=== PATIENT | female | born 1975 | race Caucasian/White ===

== ENCOUNTER 2021-09-21 12:41 | Emergency (ER) | payer MEDICAID ==
[~2021-09-21] VITALS: Ht 165.1 cm; Wt 72.0 kg
[2021-09-21] MEDS ORDERED: ALPRAZolam 0.25 MG TABLET ONE (13:19)
--- NOTE | 2021-09-21 13:21 | PHYS DOC ---
Past History Past Surgical History: No Surgical History General Adult EDM: Chief Complaint: ANXIETY/PANIC ATTACK HPI: HPI: Patient is a 46-year-old female who presents to the emergency department today for anxiety. 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 Patient reports that she has had some increased stressful life events. Patient reports that she is intermittently on anxiety medication. She denies suicidal homicidal ideation. Review of Systems: Review of Systems: Constitutional: Denies fever or chills Eyes: Denies change in visual acuity HENT: Denies nasal congestion or sore throat Respiratory: Denies cough or shortness of breath Cardiovascular: Denies chest pain or edema GI: Denies abdominal pain, nausea, vomiting, bloody stools or diarrhea : Denies dysuria Musculoskeletal: Denies back pain or joint pain Integument: Denies rash Neurologic: Denies headache, focal weakness or sensory changes Endocrine: Denies polyuria or polydipsia Lymphatic: Denies swollen glands Psychiatric: See HPI Allergies: Allergies: Allergies Coded Allergies Type Severity Reaction Last Updated Verified diphenhydramine Allergy Unknown 09/21/21 Yes escitalopram Allergy Unknown 09/21/21 Yes hydroxyzine Allergy Unknown 09/21/21 Yes Uncoded Allergies Type Severity Reaction Last Updated Verified STERIOD Allergy Unknown 09/21/21 Physical Exam: PE: Constitutional: Well developed, well nourished, no acute distress, non-toxic appearance. [] HENT: Normocephalic, atraumatic, bilateral external ears normal, deaf, oropharynx moist, no oral exudates, nose normal. [] Eyes: PERRL, EOMI, conjunctiva normal, no discharge. [] Neck: Normal range of motion, no tenderness, supple, no stridor. [] Cardiovascular:Heart rate regular rhythm, no murmur [] Lungs & Thorax: Bilateral breath sounds clear to auscultation [] Abdomen: Bowel sounds normal, soft, no tenderness, no masses, no pulsatile masses. [] Skin: Warm, dry, no erythema, no rash. [] Back: No tenderness, normal range of motion Extremities: No tenderness, no cyanosis, no clubbing, ROM intact, no edema. [] Neurologic: Alert and oriented X 3, normal motor function, normal sensory function, no focal deficits noted. [] Psychologic: Affect normal, judgement normal, mood normal. [] Current Patient Data: Vital Signs: Vital Signs Date Time Temp Pulse Resp B/P (MAP) Pulse Ox O2 Delivery O2 Flow Rate FiO2 09/21/21 12:49 98.0 84 18 150/84 (106) 93 EKG: EKG: [] Radiology/Procedures: Radiology/Procedures: [] Heart Score: C/O Chest Pain: N/A Risk Factors: Risk Factors: DM, Current or recent (<one month) smoker, HTN, HLP, family history of CAD, obesity. Risk Scores: Score 0 - 3: 2.5% MACE over next 6 weeks - Discharge Home Score 4 - 6: 20.3% MACE over next 6 weeks - Admit for Clinical Observation Score 7 - 10: 72.7% MACE over next 6 weeks - Early Invasive Strategies Course & Med Decision Making: Course & Med Decision Making Pertinent Labs and Imaging studies reviewed. (See chart for details) [] Patient presents to the emergency department for anxiety. I reviewed lara basilio's chart and its appears that she was seen at [facility] yesterday for similar complaints and got treated with anxiety medication and discharged home with a prescription. Patient reports that [facility] would not allow her to fill the prescription. I contacted [facility] and the [facility] in [place] do not have any record of the anxiety medication but did state that if she got a prescription sent to another location she would need to go to that location to have it filled. Patient will be given a dose of anxiety medication in the emergency department and she is advised to go to the [facility] on [address] [facility] in [facility] where the prescription was sent to have it filled. I told patient that if she has any issues she should have the pharmacy call this facility. She is also given referral information for the guidance Center. I discussed with patient all findings and diagnostic testing as well as the need to follow-up with PCP for further evaluation and treatment or return to the ER if any new or worsening symptoms. Strict return precautions were also discussed at length. Patient voiced understanding and agreement with the plan. Patient is hemodynamically stable at the time of disposition. Dragon Disclaimer: Dragon Disclaimer: This electronic medical record was generated, in whole or in part, using a voice recognition dictation system. Departure Departure: Impression: Primary Impression: Anxiety Disposition: HOME / SELF CARE / HOMELESS Condition: GOOD Referrals: PCP,NO (PCP) Patient Instructions: Anxiety and Panic Attacks Additional Instructions: You are seen in the emergency department today for anxiety which was treated. You will need to go to the [facility] pharmacy on [address] [facility] to fill the prescription that was previously sent in from [facility]. If you encounter any problems filling this prescription please have the pharmacy consultant call this hospital at [phone]. Please follow-up with the guidance Center, information was attached to this discharge paperwork. Return to the emergency department if you develop anxiety, suicidal or homicidal ideation. [facility] [address] [place], [place] [phone] Scripts Alprazolam (XANAX) 0.5 Mg Tablet 1 TAB PO BID for anxiety, #14 TAB 0 Refills Prov: ROSANGELA LUNA APRN 09/21/21 ROSANGELA LUNA APRN Sep 21, 2021 13:21
[2021-09-21 13:30] VITALS: BP 128/74
[2021-09-21] MEDS ORDERED: ALPRAZolam 0.25 MG TABLET PO ONE (13:30)
[2021-09-21] MEDS ORDERED: ALPR0.5T PO (14:29)
== END 2021-09-21 13:30 | disposition home or self-care (01) ==
LOC: ER 12:41
DX: F41.9 Anxiety disorder, unspecified (principal); Z88.8 Allergy status to other drugs, medicaments and biological substances
CPT/HCPCS: 99283